=== PATIENT | male | born 1940 | race Caucasian/White ===

== ENCOUNTER → 2016-09-18 | Outpatient (CLI) | payer MEDICARE, BC ==
[~2016-09-18] MED LIST: ACCUPRIL PO; ACCUPRIL40 MG PO; ACTOS PO; ALDACTONE PO; ASPIRIN PO; ASPRIN PO; CARVEDILOL25 MG PO; COREG PO; ECOTRIN325 MG PO; FLEXERIL PO; FUROSEMIDE40 MG PO; GLUCOTROL XL PO; HUMALOG100 U/M2 SQ; ISOSORBIDE MONO30 M1 PO; KCL PO; KLOR-CON PO; LANTUS SOLOSTAR3 ML SUBQ; LANTUS SUBQ; LANTUS100 U/M1; LANTUS100 U/ML; LANTUS100 U/ML INJ; LASIX PO; LIPITOR PO; LIPITOR40 MG PO; LORTAB 5/500 TA1 TA1 PO; NOVOLOG SUBQ; SIMVASTATIN40 MG PO; TRICOR PO; TRILIPIX135 MG PO; VYTORIN 10/40 T1 TAB PO; [UNRECOGNIZED DRUG - OTHER] PO
== END | disposition home or self-care (01) ==
LOC: CLAB 16:12
DX: E11.40 Type 2 diabetes mellitus with diabetic neuropathy, unspecified (principal); M79.609 Pain in unspecified limb
CPT/HCPCS: 36415; 84550